=== PATIENT | male | born 1990 | race Two or more races ===

== ENCOUNTER 2020-05-17 08:09 | Day surgery (SDC) | payer OTHER ==
[~2020-05-17] VITALS: Ht 177.8 cm; Wt 86.2 kg
== END 2020-05-18 08:00 | disposition home or self-care (01) ==
LOC: ER 08:09 → EDSTATUS 11:20 → SURH 15:23 → CIR.AMB 15:23 → ER 15:23 → O/R 15:23 → CIR.AMB 05-18 08:00 → SURH 05-18 18:18 → O/R 05-18 18:18
PROVIDERS: ATTEND Surgery
DX: K62.89 Other specified diseases of anus and rectum (principal); K64.1 Second degree hemorrhoids; Z20.828 Contact with and (suspected) exposure to other viral communicable diseases; K62.5 Hemorrhage of anus and rectum; R19.7 Diarrhea, unspecified; R10.9 Unspecified abdominal pain